=== PATIENT | female | born 1975 | race Caucasian/White ===

== ENCOUNTER 2021-09-01 09:18 | Outpatient (CLI) | payer BC | END 2021-09-01 09:19 | disposition home or self-care (01) | LOC: CSHLAB 09:18 | PROVIDERS: ATTEND Urology | DX: Z01.812 Encounter for preprocedural laboratory examination (principal); Z20.822 Contact with and (suspected) exposure to COVID-19; N92.0 Excessive and frequent menstruation with regular cycle | CPT/HCPCS: 84703; 85027; 86850; 86900; 86901; U0003; U0005 ==

== ENCOUNTER 2021-09-06 10:59 | Day surgery (SDC) | payer BC ==
[2021-09-01 11:24] LABS: Hemoglobin 9.8 g/dL (12.0-15.5); Mean Corpuscular HGB CONC 30.1 g/dL (32.0-36.0); Mean Corpuscular Hemoglobin 25.2 pg (27.0-33.0); Mean Corpuscular Volume 83.8 fl (81.6-98.3); Mean Platelet Volume 10.4 fl (7.4-10.4); Platelet Count 361 10x3/uL (150-450); RBC Distribution Width 15.4 % (11.5-14.5); Red Blood Cell (RBC) Count 3.89 10x6/uL (3.90-5.03); White Blood Cell (WBC) Count 3.7 10x3/uL (3.5-10.5)
[2021-09-01 11:47] LABS: BHCG - Serum Negative (NEGATIVE); Pregs Control Background? CLEAR/WHITE (CLR/WHITE); Pregs Control Bar Appear? YES (CONTROL BAR)
[2021-09-01 17:28] LABS: SARS-CoV-2 PCR by NAA Not Detected (NotDetected)
[2021-09-04 16:16] VITALS: BMI 21.9
[2021-09-06] MEDS ORDERED: Lidocaine 1% MPF 2 ML VIAL ONE (11:53)
[2021-09-06] MEDS ORDERED: Gabapentin 300 MG CAP ONE (12:28)
[2021-09-06] MEDS ORDERED: CeleCOXIB 100 MG CAP ONE (12:29)
[2021-09-06] MEDS ORDERED: Famotidine/PF 20 mg/2ml Vial ONE ×2 (12:29→12:51)
[2021-09-06] MEDS ORDERED: PROPOFOL 20 ML ONE (12:49)
[2021-09-06] MEDS ORDERED: Fentanyl 100 MCG/2 ML VIAL ONE (12:50)
[2021-09-06] MEDS ORDERED: Lidocaine 2% PF 5 ML VIAL ONE (12:50)
[2021-09-06] MEDS ORDERED: Ondansetron PF 4 MG/2 ML Vial ONE (12:51)
[2021-09-06] MEDS ORDERED: Ketorolac Tromethamine 30 MG/ML VIAL ONE (13:01)
[2021-09-06] MEDS ORDERED: Metoclopramide HCl 10 MG/2 ML VIAL ONE (13:01)
[2021-09-06] MEDS ORDERED: Dexamethasone 4 mg/ml Vial ONE (13:01)
[2021-09-06] MEDS ORDERED: PHENYLEPHRINE-NS 100 MCG/ML 10 ML SYRINGE ONE (13:45)
[2021-09-06] MEDS ORDERED: HYDROcodone/Acetaminophen 5/325 mg Tablet ONE (15:08)
== END 2021-09-06 16:40 | disposition home or self-care (01) ==
LOC: CSHSDC 10:59
PROVIDERS: ATTEND Student in an Organized Health Care Education/Training Program
PROC: 0UB98ZX Excision of Uterus, Via Natural or Artificial Opening Endoscopic, Diagnostic (ICD-10-PCS; principal; 2021-09-06)
PROC: 0UDB8ZZ Extraction of Endometrium, Via Natural or Artificial Opening Endoscopic (ICD-10-PCS; principal; 2021-09-06)
DX: N84.0 Polyp of corpus uteri (principal); G43.909 Migraine, unspecified, not intractable, without status migrainosus; Z79.899 Other long term (current) drug therapy
CPT/HCPCS: 36415; 84703; 85027; 86850; 86900; 86901; 88305; J0690; J1100; J1885; J2001; J2405; J2704; J2765; J3010; S0028; U0003; U0005